=== PATIENT | male | born 1940 | race Caucasian/White ===

== ENCOUNTER 2016-06-13 05:30 | Inpatient (IN) | payer MEDICARE, OTHER ==
--- NOTE | 2016-06-10 12:19 | HP ---
DATE OF CLINIC: 06/01/16 MALDONADO COMER : 1940 PLANNED PROCEDURE: Right total hip arthroplasty DATE OF PROCEDURE:June 13, 2016 SURGEON: Dr. Rg Arshad PCP: Dr. You Amador HISTORY OF PRESENT ILLNESS Maldonado Comer is a 75 year old male. * Medication list reviewed with patient allergy list reviewed with patient. * Tried NSAIDS * Has not tried Physical Therapy * Has not tried Injections Mr. Comer is a 75-year-old male I have been seeing with respect to right hip discomfort. He has a long history of multiple joint "arthritis". He has been managed very successfully with use of Celebrex in the past. Unfortunately, he has had episodic marked increase in right hip discomfort that has been quite limiting and made it difficult for him to weightbear. He has had some associated rest discomfort. Pain is in the groin radiating laterally and into the thigh to the knee. No specific traumatic event. No radicular symptoms. He denies significant problems on the contralateral side. Workup to date has included radiographs through his PCP, 12/30/15, that are available for my review demonstrating significant degenerative changes. After discussion and review of treatment options, both operative and nonoperative, he has elected to proceed with surgical intervention and presents today preoperatively. No significant medical comorbidities. No recent illnesses. He has not tolerated tramadol. He has had significant improvement with accupuncture as well as previous injection CURRENT MEDICATION * CeleBREX 200 MG Capsule 1 once a day, 30 days, 6 refills PAST MEDICAL/SURGICAL HISTORY Reported: No recent change in medical history. Medical: Reported numbness Right hip and knee, Reported tingling Right hip and knee, history of Arthritis, and Osteoporosis. Surgical / Procedural: Eye Surgery Right cataract surgery. Diagnoses: Hyperlipidemia. Osteoarthritis. Measles (rubeola) Mumps Varicella Arthritis. Surgical: * Tonsillectomy age 5 SOCIAL HISTORY Social history unchanged. Behavioral: Caffeine use, former smoker smoked 20 years, quit 20 years ago, and non-smoker quit smoking stopped 30 years ago. Smoking status: Former smoker. Alcohol: Alcohol 1 drink a day and alcohol use. Home Environment: Lives with spouse. 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 ALLERGIES * No Known Allergies FAMILY HISTORY Family history unchanged Colitis younger age, pgm from tumor in stomach Hypertension father Alzheimer disease mother at 81 Stroke syndrome father Paternal: Coronary artery disease Hypertension Stroke syndrome Maternal: Alzheimer disease REVIEW OF SYSTEMS Systemic: No fever and no recent weight change. Head: No head symptoms. Cardiovascular: No cardiovascular symptoms. Pulmonary: No pulmonary symptoms. Gastrointestinal: No gastrointestinal symptoms. Psychological: No psychological symptoms. Skin: No skin lesions and no rash. PHYSICAL FINDINGS * Vitals taken 06/01/2016 11:42 am BP-Sitting R 153/92 mmHg 100 - 120/60 - 80 BP Cuff Size Regular Pulse Rate-Sitting 83 bpm 50 - 100 Temp-Oral 97 F 96 - 101 Height 72 in 64 - 74 Weight 177 lbs 121 - 205 Body Mass Index 24.0 kg/m2 Body Surface Area 2.02 m2 Pain Level 0 Ears, Nose, Throat: * ENT: normal. Lungs: * Clear to auscultation. Cardiovascular: Heart Rate And Rhythm: * Normal. Abdomen: * Normal. Neurological: Motor: * Dominant Hand = Right Hand. Patient is a well-developed, well-nourished male in no acute distress, normal-appearing mood and affect. He has a slightly asymmetric, antalgic gait that is notable at startup, but becomes relatively symmetric heel-to-toe gait with a level pelvis. Evaluation of the right hip girdle shows mild tenderness over the trochanter, NT in the groin, NT in the sciatic notch. ROM passively is 100 degrees of flexion, 45 degrees of abduction, 55 degrees ER, 20 degrees IR with mild exacerbation of groin pain. Patient can adduct past the midline and extend fully. Thigh is soft and NT with no atrophy or asymmetry compared to the contralateral side. Cursory exam of the knee shows full motion. No focal periarticular tenderness and a normal ligamentous exam. NT over the pretibial area. Calf is soft and NT. Distal light touch sensation and motor function are grossly intact and symmetric. Pulses are palpable. Sitting SLR is negative. His hamstrings are somewhat tight. Contralateral hip exam is nonirritable. TESTS Pelvis and bilateral hip films from 12/30/15 are reviewed. The right hip shows near complete medial joint loss with periarticular sclerosis. He does have superolateral subchondral cystic changes in the head with a small superolateral acetabular osteophyte. There is some superior periarticular irregularity. Contralateral hip shows large multi-loculated degenerative cysts within the femoral head, some irregularity and sclerosis. Slight medial and superomedial narrowing with a small superolateral osteophyte. ASSESSMENT Moderately advanced degenerative disease, right hip, with history of acute arthritic flare. Radiographic evidence of degenerative disease, left hip, not currently limiting. THERAPY * Patient fall risk screen negative. * Patient eligible for fall risk assessment. * Patient received fall risk assessment. PLAN * Unilateral primary osteoarthritis, right hip Physical Therapy: PT [facility] [phone] * OTHER OxyCODONE HCl 5 MG TABS, 1or 2 tablets every 4 to 6 hours as needed, 5 days, 0 refills * Total hip replacement -Right Discussed with patient in detail the limitations, expectations as well as risks and possible complications of surgery including, but not limited to wound problems or infection, neurovascular injury, continued hip pain or dysfunction, postop instability including the possibility of dislocation and/or postop leg length discrepancy, and the possibility of prosthetic wear or failure over time that may require additional operative or nonoperative treatment. Patient also realizes the perioperative risks including risks associated with anesthesia and would like to proceed. A full PAR conference was held, questions and concerns addressed and informed consent was obtained. Patient will be sent from my office for completion of the preoperative workup. Patient will use enteric coated aspirin postoperatively for DVT prophylaxis as per risk stratification protocol. Will use celebrex and oxycodone for postoperative management Patient would like to perform their postop PT at [facility] with total hip arthroplasty protocol. CARE TEAM You Amador MD [facility]
[~2016-06-13 05:30] MED LIST: BUPIVACAINE 0.25% (MDV) 20 ML in SODIUM CHLORIDE 0.9% FLUSH 20 ML IF PRN; BUPIVACAINE 0.25% (MDV) 24 ML, MORPHINE SULFATE 8 MG, EPINEPHRINE 0.3 MG in SODIUM CHLO... IF PRN; CEFAZOLIN SODIUM 2 GRAM PREMIX 100 ML IV PRN; CELECOXIB 200 MG CAPSULE PO ONE; CLONIDINE HCL 0.1 MG/24 HR (7 DAY PATCH) TD SCH; FAMOTIDINE 20 MG TABLET PO ONE; GABAPENTIN 600 MG TABLET PO ONE; ONDANSETRON 4 MG/2ML 2 ML VIAL IV ONE; OXYCODONE HCL 10 MG TAB.SR PO ONE; POLYMYXIN B SULFATE 500,000 UNITS, BACITRACIN 25,000 UNITS in SODIUM CHLORIDE 3 L IRRIG... IR PRN; TRANEXAMIC ACID 1,000 MG in SODIUM CHLORIDE 0.9% 100 ML IV PRN
[2016-06-13] MEDS ORDERED: IV START KIT ONE (05:41)
[2016-06-13] MEDS ORDERED: LACTATED RINGERS 1,000 ML ONE (05:41)
[2016-06-13] MEDS ORDERED: CEFAZOLIN SODIUM 2 GRAM PREMIX 100 ML IV ONE (05:42)
[2016-06-13] MEDS ORDERED: TRAMADOL HCL 50 MG TABLET ONE (06:24)
[2016-06-13] MEDS ORDERED: OXYCODONE HCL 10 MG TAB.SR PO ONE (06:24)
[2016-06-13] MEDS ORDERED: ONDANSETRON 4 MG/2ML 2 ML VIAL ONE (06:24)
[2016-06-13] MEDS ORDERED: CLONIDINE HCL 0.1 MG/24 HR (7 DAY PATCH) TD ONE (06:25)
[2016-06-13] MEDS ORDERED: GABAPENTIN 600 MG TABLET ONE (06:25)
[2016-06-13] MEDS ORDERED: FAMOTIDINE 20 MG TABLET ONE (06:25)
[2016-06-13] MEDS ORDERED: CELECOXIB 200 MG CAPSULE ONE (06:25)
[2016-06-13] MEDS ORDERED: MIDAZOLAM HCL 1 MG/ML 2ML VIAL ONE (06:29)
[2016-06-13] MEDS ORDERED: FENTANYL 100 MCG/2 ML VIAL ONE (06:29)
[2016-06-13] MEDS ORDERED: SPINAL PROCEDURAL TRAY 1 EACH ONE (06:38)
[2016-06-13] MEDS ORDERED: LIDOCAINE 2% (PRES FREE) 5 ML VIAL ONE (07:30)
[2016-06-13] MEDS ORDERED: PROPOFOL 40 ML IV ONE (07:30)
[2016-06-13] MEDS ORDERED: DEXAMETHASONE SOD PHOS 4 MG/1 ML VIAL ONE (07:30)
[2016-06-13] MEDS ORDERED: EPHEDRINE SULFATE UD SYR 25 MG 25 MG/5 ML SYRINGE IV ONE ×2 (07:43→08:04)
[2016-06-13] MEDS ORDERED: HYDROMORPHONE HCL 1 MG/ML SYRINGE IV PRN (08:03)
[2016-06-13] MEDS ORDERED: FENTANYL 100 MCG/2 ML VIAL IV PRN (08:03)
[2016-06-13] MEDS ORDERED: NALOXONE HCL 0.4 MG/ML VIAL IV PRN (08:03)
[2016-06-13] MEDS ORDERED: PROMETHAZINE HCL 25 MG/ML VIAL IM PRN (08:03)
[2016-06-13] MEDS ORDERED: ONDANSETRON 4 MG/2ML 2 ML VIAL IV PRN ×2 (08:03→09:44)
[2016-06-13] MEDS ORDERED: ATROPINE SULFATE 0.4 MG/1 ML VIAL IV PRN (08:03)
[2016-06-13] MEDS ORDERED: LACTATED RINGERS 1,000 ML IV SCH (08:15)
[2016-06-13] MEDS ORDERED: PHENYLEPHRINE 10 MG/1 ML (1%) VIAL ONE (08:22)
[2016-06-13] MEDS ORDERED: PROPOFOL 20 ML IV ONE (08:35)
--- NOTE | 2016-06-13 09:06 | PCMBPN ---
Brief Post Op Note: Date of Procedure: 06/13/16 Preoperative Diagnosis: DJD right hip Postoperative Diagnosis: 1. [Same] Procedure: right ELLIOTT Surgeon: Rg Arshad MD Assist: Lillie (CANDY) Anesthesia: spinal (Mae) Findings: DJD with deformity Condition: stable to PAR Complications: none IV Fluids: 2000 mLs Urine Output: 250 mLs Estimated Blood Loss: 200 mLs Tourniquet Time: [N/A] Specimens: [N/A] Implants: Trilock Drains: none
[2016-06-13] MEDS ORDERED: HYDROMORPHONE HCL 0.5 MG/0.5 ML SYRINGE IV PRN (09:44)
[2016-06-13] MEDS ORDERED: TEMAZEPAM 15 MG CAPSULE PO PRN (09:44)
[2016-06-13] MEDS ORDERED: KETOROLAC TROMETHAMINE 30 MG/ML 1 ML VIAL IV PRN (09:44)
[2016-06-13] MEDS ORDERED: OXYCODONE HCL 5 MG TABLET PO PRN (09:44)
[2016-06-13] MEDS ORDERED: CALCIUM CARBONATE 500 MG TAB.CHEW PO PRN (09:44)
--- NOTE | 2016-06-13 09:47 | RAD ---
PELVIS COMPARISON: Pelvis and bilateral hips, 12/30/2015 HISTORY: Right hip replacement today for arthritis. FINDINGS: Views: AP pelvis. Bones: Normal. Joints: Satisfactory appearance of the right total hip uncemented arthroplasty. No change in left hip osteoarthritis. Soft tissues: Normal. IMPRESSION: 1. Satisfactory appearance of the right total hip uncemented arthroplasty.
--- NOTE | 2016-06-13 09:48 | OP ---
BERNY COMER [id number] : 1940 DATE OF SURGERY: June 13, 2016 PREOPERATIVE DIAGNOSIS: Degenerative joint disease right hip POSTOPERATIVE DIAGNOSIS: Same PROCEDURE: Right Total Hip Arthroplasty COMPONENTS: Tri-Lock size 9 standard offset press-fit femoral stem, 36mm +1.5 Delta ceramic femoral head, 58 [place] 100 press-fit acetabular shell with a neutral cross-linked polyethylene liner. SURGEON: Pavithra ASSIST: Lillie PATEL) ANESTHESIA: Spinal per Nora EBL: 200 mL URINE OUTPUT: 250 cc IVF REPLACEMENT: Per anesthesia, 2 liters crystalloid DRAINS: None COMPLICATIONS: None HISTORY: Briefly, patient is a 75-year-old male with clinical and radiographic evidence most consistent with degenerative joint disease of their right hip. They have failed traditional nonoperative measures and at this point desire elective surgical management. For additional details, refer to previously dictated Preoperative History and Physical Exam. A full PAR conference was held, questions and concerns were addressed, and informed consent was obtained. FINDINGS: Advanced degenerative disease with femoral head deformity, subchondral discoloration consistent with focal necrosis without collapse and a skirt osteophyte. PROCEDURE: The patient was taken to the operating room and after previously described anesthesia was placed in the lateral decubitus position on the operating room table and held with the peg board positioner. Kedar prominences were well padded and an axillary roll was placed. The right hip girdle and lower extremity were then prepped and draped out in the usual sterile fashion. Preoperative antibiotics were given empirically. Intraoperative DVT prophylaxis consisted of bilateral mechanical foot pumps. Personal filtration suits were used as was a closed room environment. An oblique ten centimeter incision was made using the minimally invasive guide posterior and extending slightly proximal to the greater trochanter. We dissected through subcutaneous tissue down to the gluteus fascia. Electrocautery was used at this point and throughout the duration of the case to establish and maintain hemostasis. The gluteus fascia was incised in line with the incision and the muscle fibers split to expose the underlying bursal tissue. Tranexamic acid was infiltrated over 10 minutes prior to incision, 1 gram dose per protocol. A similar 2nd dose was given at initiation of closure. A deep self retaining field retractor was placed. The short external rotators were identified, the piriformis was tagged and reflected with the underlying capsule which was reflected in a U fashion off the femoral neck and tagged as well for later repair. Release of the capsule allowed for dislocation of the hip and the femoral head was brought up into the operative field. A femoral neck cut was made proximal to the lesser trochanter as per our preoperative templating. We then translated the femur anteriorly exposing the acetabulum. The remaining labrum was excised circumferentially. Osteophytes were debrided under direct visualization. We reamed to the true acetabular floor and then incrementally up to a 55 as per our preoperative plan initially and then up to a 57 because of anterior to posterior asymmetry with obliquity, at which point we noted circumferential bleeding cancellous bone. This was trialed at approximately 45 degrees of abduction and 20 degrees of anteversion with good fit and stability. We then impacted the true acetabular component which was seated completely. An apical hole cover was placed and we impacted the neutral crosslinked polyethylene liner. Attention was then directed back to the femur. The remaining soft tissue was cleared from the piriformis fossa and we use a rongeur and box osteotome to enter the proximal femoral canal followed by the canal seeker and then the broach only system up to a size 9 matching the patient's [place] anteversion with good proximal fill and rotational stability. This was trialed with a standard offset +1.5. The hip was then reduced with good stability to 70 degrees of internal rotation in 90 degrees of flexion and full extension with no instability on external rotation. There was good soft tissue balance and approximately equal leg lengths. Satisfied, trial components were removed and we impacted the true femoral stem. The trunnion was then cleaned and dried and the femoral head was impacted. The hip was then reduced with stability as previously discussed. Satisfied, we turned our attention to closure. The wound was copiously irrigated with antibiotic pulsatile lavage. We then advanced the capsule and piriformis to the gluteus medius insertion. The gluteus fascia was closed with a running number two PDO StratoFix suture. 1st periarticular injection was given at this point per protocol into the capsule, synovium, gluteus and external rotators. The subcutaneous tissue was closed with interrupted 2-0 and 3-0 Vicryl and the skin was closed with a running 4-0 Monocryl stitch with Indermil and Steri-Strips. The 2nd periarticular injection was done at this point per protocol into the subcutaneous tissue superiorly and anteriorly to the incision. A sterile hip dressing was then applied, the patient was returned to the supine position, transferred to their hospital bed, and sent to the postoperative recovery room in stable condition. They tolerated the procedure well. Sponge, instrument, and needle count were correct. ROBE/mrw CC: You Amador MD PT [facility]
[2016-06-13 10:07] VITALS: BMI 24.0
[2016-06-13] MEDS ORDERED: PUMP TUBING ONE (11:36)
[2016-06-13] MEDS: D5 1/2NS with 20 mEq KCL 1,000 ML IV SCH (12:53)
[2016-06-13] MEDS: ACETAMINOPHEN 500 MG TABLET PO SCH ×2 (15:19→20:54)
[2016-06-13] MEDS: CEFAZOLIN SODIUM 1 GRAM PREMIX 1 G in Premix (D5W) 50 ml 1 EACH IV SCH (15:19)
[2016-06-13] MEDS: DOCUSATE SODIUM 100 MG CAPSULE PO SCH (20:54)
[2016-06-13] MEDS: ASCORBIC ACID 500 MG TABLET PO SCH (20:55)
[2016-06-14] MEDS: D5 1/2NS with 20 mEq KCL 1,000 ML IV SCH ×3 (00:05→10:20)
[2016-06-14] MEDS: CEFAZOLIN SODIUM 1 GRAM PREMIX 1 G in Premix (D5W) 50 ml 1 EACH IV SCH (00:05)
[2016-06-14] MEDS ORDERED: SODIUM CHLORIDE 0.9% 100 ML IV ONE (00:11)
[2016-06-14] MEDS ORDERED: SODIUM CHLORIDE 0.9% 100 ML IV PRN (00:15)
[2016-06-14] MEDS: ACETAMINOPHEN 500 MG TABLET PO SCH ×2 (05:04→08:57)
[2016-06-14] MEDS ORDERED: REMOVE PATCH 1 EACH UNIT TD SCH (05:30)
[2016-06-14 06:47] LABS: HEMATOCRIT 32.8 % (32.0-52.0); MEAN CELL VOLUME 91.4 fl (80.0-94.0); MEAN CORPUSCULAR HEMOGLOBIN 30.6 pg (27.0-31.0); MEAN CORPUSCULAR HGB CONC 33.5 g/dl (33.0-37.0)
[2016-06-14 07:04] LABS: CALCIUM 8.8 mg/dL (8.6-10.3)
--- NOTE | 2016-06-14 07:34 | PDOC43 ---
- Subjective Findings: POD #1 right ELLIOTT- feels that he is doing 'very well'. Excellent pain control without narcotics. Was up with PT last PM. Subjective: Denies Nausea, Denies Vomiting, Denies Fever - Objective Vital Signs Temperature 97.9 F 06/14/16 07:27 Pulse Rate 71 06/14/16 07:27 Respiratory Rate 16 06/14/16 07:27 Blood Pressure 112/64 06/14/16 07:27 O2 Saturation by Pulse Oximetry 98 06/14/16 07:27 Oxygen Delivery Method Room Air Oxygen Flow Rate 0 Laboratory 06/14/16 06:10 06/14/16 06:10 06/14/16 06:10 RBC 3.59 L Estimated GFR 110 H Active Medication Orders Category Date Time Status Acetaminophen [Tylenol] Med 06/13/16 15:30 Active 1,000 mg PO Q6H Ascorbic Acid [Vitamin C] Med 06/13/16 21:00 Active 500 mg PO BID Aspirin (Enteric Coated) [Ecotrin] Med 06/14/16 09:00 Active 325 mg PO DAILY Bisacodyl [Dulcolax] Med 06/16/16 09:07 Active 10 mg [place] DAILY PRN Calcium Carbonate [Tums] Med 06/13/16 09:44 Active 1,000 - 2,000 mg PO Q2H PRN Celecoxib [Celebrex] Med 06/14/16 09:00 Active 200 mg PO DAILY D5 1/2NS with 20 mEq KCL [D51/2NS with 20 mEq KCL] 1, Med 06/13/16 09:44 Active 000 ml IV 125 mls/hr Docusate Sodium [Colace] Med 06/13/16 21:00 Active 100 mg PO BID Hydromorphone HCl [Dilaudid] Med 06/13/16 09:44 Active 0.5 mg IV Q1H PRN Ketorolac Tromethamine [Toradol] Med 06/13/16 09:44 Active 30 mg IV Q6H PRN Magnesium Hydroxide [Milk of Magnesia] Med 06/14/16 09:07 Active 30 ml PO DAILY PRN Multivitamins [One-A-Day] Med 06/14/16 09:00 Active 1 tab PO DAILY Ondansetron 4 mg/2ml Vial [Zofran] Med 06/13/16 09:44 Active 4 - 6 mg IV Q6H PRN Oxycodone HCl [Roxicodone] Med 06/13/16 09:44 Active 5 - 10 mg PO Q4H PRN Remove Patch Med 06/14/16 09:07 Once 1 each TD X1 ONE Sodium Chloride 0.9% 100 ml Med 06/14/16 00:15 Active IV PRN Sodium Chloride 0.9% Flush [Normal Saline 10ml Flush] Med 06/13/16 09:44 Active 10 - 50 ml IV PRN PRN Sodium Chloride 0.9% Flush [Normal Saline 10ml Flush] Med 06/13/16 17:00 Active 10 ml IV Q8HR Temazepam [Restoril] Med 06/13/16 09:44 Active 15 mg PO BEDTIME PRN Vitamin D3 Med 06/14/16 09:00 Active 2,000 units PO DAILY Intake and Output 06/12/16 06/13/16 06/14/16 23:59 23:59 23:59 Intake Total 4602 2025 Output Total 3250 1400 Balance 1352 625 General: Afebrile HEENT: Mucous membr. moist/pink Lungs: Normal Air Movement Cardiovascular: Regular Rate and Rhythm Abdomen: Soft Skin: Normal Color Neurological: Alert, Oriented x 4 Psych/Mental Status: Normal Affect, Normal Mood - Right Lower Extremity Incision: Dressing Clean/Dry/Intact, No Drainage Motor: Extensor Hallucis Longus: 5/5, Tibialis Anterior: 5/5, Gastrocnemius: 5/5 , Peroneals: 5/5, Quadriceps: 5/5 Gross Sensation to Light Touch: Present: Deep Peroneal Nerve, Superficial Peroneal Nerve, Medial Plantar Nerve, Lateral Plantar Nerve Capillary Refill: < 3 Seconds Motion: able to do ISLR supine. No pain with gentle PROM - Problems (1) Status post total hip replacement, right Status: AcuteAssessment/Plan: POD#1 doing very well 1. Physical Therapy: per ELLIOTT protocol 2. Pain Control: excellent without additional narcotics at this point 3. DVT Prophylaxis: mobilization/mechanicals/ECASA 4. Disposition: likely home later today if meets criteria. Instructions reviewed. Will see this PM for dressing change and repeat exam 5. Medical Issues: stable- no issues
[2016-06-14] MEDS: DOCUSATE SODIUM 100 MG CAPSULE PO SCH (08:57)
[2016-06-14] MEDS: ASCORBIC ACID 500 MG TABLET PO SCH (08:57)
[2016-06-14] MEDS ORDERED: VITAMIN D3 1,000 UNITS CAP.LIQ PO SCH (09:00)
[2016-06-14] MEDS ORDERED: ASPIRIN (ENTERIC COATED) 325 MG TABLET.EC PO SCH (09:00)
[2016-06-14] MEDS ORDERED: CELECOXIB 200 MG CAPSULE PO SCH (09:00)
[2016-06-14] MEDS ORDERED: MULTIVITAMINS 1 TAB TABLET PO SCH (09:00)
[2016-06-14] MEDS ORDERED: MAGNESIUM HYDROXIDE 30 ML UDCUP PO PRN (09:07)
[2016-06-14] MEDS ORDERED: REMOVE PATCH 1 EACH UNIT TD ONE (09:07)
[2016-06-14 11:28] VITALS: BP 130/66
--- NOTE | 2016-06-15 11:17 | DS ---
BERNY COMER [id number] : 1940 DATE OF ADMISSION: June 13, 2016 DATE OF DISCHARGE: June 14, 2016 DISCHARGE DIAGNOSES: Right hip osteoarthritis HOSPITAL PROCEDURES: Right total hip arthroplasty. SURGEON: Rg Arshad M.D. BRIEF HISTORY: Patient is a 75-year-old male with clinical and radiographic evidence of advanced DJD of their right hip. For the full history please see the chart note. BRIEF HOSPITAL COURSE: Patient was admitted on 06/13/16. Dr. Rg Arshad performed a right total hip arthroplasty. Patient was moved to the recovery room in stable condition. They were given 4 doses of antibiotic for empiric coverage. DVT prophylaxis consisted of enteric coated aspirin, 325mg, SHAILESH hose and AV foot pumps. PT was instituted postop day 0 with right total hip arthroplasty protocol, weightbearing as tolerated. Their incision site remained benign, their vital signs remained stable and they remained neurally and vascularly intact through the duration of the stay. They were discharged home postop day 1 to continue outpatient PT at [facility] with right total hip arthroplasty protocol, weightbearing as tolerated keeping total hip precautions in mind. DISCHARGE INSTRUCTIONS: 1. Keep the wound site clean and dry, change dressing daily or as needed. 2. Continue the use of SHAILESH hose bilaterally. 3. Ice pack over the wound site prn. 4. Continue total hip precautions. 5. Outpatient PT at [facility] with right total hip arthroplasty protocol, weightbearing as tolerated. MEDICATIONS: 1. Patient is to resume normal preop medications. 2. Anti-coagulation will be with enteric coated aspirin, 325mg daily for 6 weeks. 3. Pain management will be with Oxycodone, 5mg 1-2 every 4 hours prn for pain. 4. Patient was also advised on utilization of a multi-vitamin with mineral daily as well as Vitamin C, 500mg, daily for 1 month. 5. Patient encouraged to take an iron supplement in the form of ferrous sulfate, 325mg daily for 4 weeks. 6. Colace, 100mg, b.i.d. until regular bowel movement. FOLLOW-UP: Please return to the clinic as scheduled for your first scheduled postop check. Prior to that point in time please call with any questions or concerns. TR/aby CC: Jasmyn Chenena MD
[2016-06-16] MEDS ORDERED: BISACODYL 10 MG SUP PR PRN (09:07)
== END 2016-06-14 14:30 | disposition home or self-care (01) | DRG 470 ==
LOC: OR 05:30 → MS 10:39
PROVIDERS: ADMIT Orthopaedic Surgery; ATTEND Orthopaedic Surgery
PROC: 0SR904A Replacement of Right Hip Joint with Ceramic on Polyethylene Synthetic Substitute, Uncemented, Open Approach (ICD-10-PCS; principal; 2016-06-13)
DX: M16.11 Unilateral primary osteoarthritis, right hip (principal); E78.5 Hyperlipidemia, unspecified; Z87.891 Personal history of nicotine dependence